=== PATIENT | male | born 1945 | race African-American/Black ===

== ENCOUNTER 2017-06-07 07:47 | Day surgery (SDC) | payer OTHER ==
[2017-06-05 12:04] VITALS: BMI 25.8
[2017-06-07] MEDS ORDERED: PROPOFOL 20 ML ONE ×2 (08:04)
[2017-06-07] MEDS ORDERED: LIDOCAINE HCL/PF 2% SDV 5ML VIAL ONE (08:04)
[2017-06-07 10:06] VITALS: TEMP 98.1
[2017-06-07 10:29] VITALS: BP 142/90; PULSE 82
--- NOTE | 2017-06-12 13:55 | PATH ---
Surgical Pathology Report Patient Name: SVETA TURNER [facility]. Rec. #: [id number] /Age/Gender: 1945 (Age: 71) / M Account: [id number] Location: Taken: 06/07/2017 Received: 06/07/2017 Reported: 06/12/2017 Physicians: Walter Matt M.D. Specimen(s) Received BX RECTUM Clinical History Polyp Final Diagnosis RECTUM, BIOPSY: TUBULAR ADENOMA. Electronically Signed Dee Gifford M.D. Gross Description Received in formalin, labeled "rectum" is a parra, irregular portion of soft tissue measuring 0.2 cm. in greatest dimension. The specimen is submitted in toto in one cassette. 06/08/201706/08/2017
== END 2017-06-07 10:30 | disposition home or self-care (01) ==
LOC: FASU-ENDO 07:47
PROVIDERS: ATTEND Internal Medicine Gastroenterology
PROC: 0DBP8ZX Excision of Rectum, Via Natural or Artificial Opening Endoscopic, Diagnostic (ICD-10-PCS; principal; 2017-06-07 09:26)
DX: Z86.010 Personal history of colon polyps (principal); D12.8 Benign neoplasm of rectum; K57.30 Diverticulosis of large intestine without perforation or abscess without bleeding
CPT/HCPCS: 88305-TC

== ENCOUNTER 2023-02-20 07:19 | Day surgery (SDC) | payer OTHER ==
[2023-02-16 16:51] VITALS: BMI 22.8
[2023-02-20 07:36] VITALS: RESP 18; TEMP 97
[2023-02-20 09:43] VITALS: BP 112/76; PULSE 66
== END 2023-02-20 09:45 | disposition home or self-care (01) ==
LOC: FASU-ENDO 07:19
PROVIDERS: ATTEND Internal Medicine Gastroenterology
PROC: 0DJD8ZZ Inspection of Lower Intestinal Tract, Via Natural or Artificial Opening Endoscopic (ICD-10-PCS; principal; 2023-02-20 08:50)
DX: Z12.11 Encounter for screening for malignant neoplasm of colon (principal); K57.30 Diverticulosis of large intestine without perforation or abscess without bleeding; Z86.010 Personal history of colon polyps
CPT/HCPCS: 82962